=== PATIENT | male | born 1980 | race Caucasian/White ===

== ENCOUNTER 2021-07-24 08:00 | Outpatient (CLI) | payer SELFPAY | END 2021-07-24 23:59 | LOC: LAB.N 08:00 | PROVIDERS: ATTEND Family Medicine | DX: Z20.822 Contact with and (suspected) exposure to COVID-19 (principal) ==

== ENCOUNTER 2021-11-20 09:18 | Emergency (ER) | payer OTHER ==
[2021-11-20 09:29] VITALS: BP 165/93
[2021-11-20] MEDS ORDERED: CHERRY SYRUP 10 ML UDC PO ONE (10:09)
[2021-11-20] MEDS ORDERED: DEXAMETHASONE 10 MG/ML VIAL PO STA (10:09)
--- NOTE | 2021-11-20 10:22 | ED Physician Documentation ---
History of Present Illness - Stated complaint Stated Complaint: BLURRED VISION - Chief complaint Chief Complaint: Cardiac - History obtained from History obtained from: Patient - History of Present Illness Timing: Today - Additonal information Additional information: 41-year-old male has a history of COVID in July of this year he has been reexposed to a son that has infection and he has now developed cough congestion and blurring of his vision. This morning he is concerned mostly about the blurring to his vision. He states this is never been this way for him previously he is looking across the room and is having trouble reading the numbers are blurry. He can still see them. He has not had problems with his eyesight previously. Review of Systems Constitutional: denies: Fever Eyes: reports: Other (Blurring of the vision). denies: Loss of vision, Decreased vision Ears: denies: Ear pain Nose: reports: Rhinorrhea / runny nose, Congestion Throat: reports: Sore throat Respiratory: reports: Dyspnea, Cough GI: denies: Vomiting Skin: denies: Rash PD PAST MEDICAL HISTORY - Allergies Allergies/Adverse Reactions: Allergies Allergy/AdvReac Type Severity Reaction Status Date / Time Penicillins Allergy Unknown Verified 11/20/21 09:29 PD ED PE NORMAL - Vitals Vital signs reviewed: Yes - General General: Alert and oriented X 3, No acute distress, Well developed/nourished - HEENT HEENT: Atraumatic, PERRL, EOMI, Ears normal, Moist mucous membranes, Pharynx benign, Dentition benign - Neck Neck: Supple, no meningeal sign, No bony TTP - Cardiac Cardiac: RRR, No murmur - Respiratory Respiratory: No respiratory distress, Clear bilaterally - Abdomen Abdomen: Soft, Non tender - Back Back: No CVA TTP, No spinal TTP - Derm Derm: Normal color, Warm and dry, No rash - Extremities Extremities: No deformity, No edema - Neuro Neuro: Alert and oriented X 3, 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, No motor deficit, No sensory deficit, Normal speech Eye Opening: Spontaneous Motor: Obeys Commands Verbal: Oriented GCS Score: 15 - Psych Psych: Normal mood, Normal affect Results - Vitals Vitals: Vital Signs - 24 hr 11/20/21 09:23 Temperature 36.1 C L Heart Rate 80 Respiratory 18 Rate Blood Pressure 165/93 H O2 Saturation 100 Oxygen O2 Source Room air - EKG (time done) 0928 Rate: Rate (enter#) (70) Rhythm: NSR Ischemia: Normal ST segments Compare to prior EKG: Old EKG unavailable Computer interpretation: Agree with computer - Labs Labs: Laboratory Tests 11/20/21 11/20/21 10:18 10:18 WBC 6.7 RBC 4.97 Hgb 15.4 Hct 43.3 MCV 87.1 MCH 31.0 MCHC 35.6 RDW 12.2 Plt Count 246 MPV 8.8 Neut # (Auto) 3.7 Lymph # (Auto) 2.1 Whiteside # (Auto) 0.6 Eos # (Auto) 0.2 Baso # (Auto) 0.0 Absolute Nucleated RBC 0.00 Nucleated RBC % 0.0 Sodium 139 Potassium 4.0 Chloride 103 Carbon Dioxide 27 Anion Gap 9.0 BUN 7 Creatinine 0.9 Estimated GFR (MDRD) 93 Glucose 101 H Calcium 9.5 Total Bilirubin 1.0 AST 27 ALT 27 Alkaline Phosphatase 154 H Total Protein 7.6 Albumin 4.4 Globulin 3.2 Albumin/Globulin Ratio 1.4 Lipase 93 H - Rads (name of study) CT head without Radiology: Prelim report reviewed (Impression: No acute intracranial finding.), EMP read indepedently, See rad report PD MEDICAL DECISION MAKING - ED course Complexity details: reviewed results, re-evaluated patient, considered differential, d/w patient, d/w family ED course: 41-year-old male with some blurring of vision and and a potential exposure to COVID has a COVID test performed we did check the patient for pinch potential of sphenoid sinusitis which did not appear evident on CT scanning of the head. I have referred the patient to see the accounts officer and have asked him to do this after his COVID test is negative. Departure - Departure Disposition: Home, Self Care Clinical Impression: Viral URI with cough, Blurred vision, bilateral Condition: Stable Instructions: ED Blurred Vision, COVID-19 [facility] Department of Health, Flu and Cold: Nutrition, Prevention and Treatment Tips Follow-Up: [facility] [place] [Provider Group] Santi Andrade MD [Provider Admit Priv/Credential] - Comments: Kelvin, today on physical examination there is no obvious evidence of pneumonia or serious illness. There is a likelihood that you have contracted COVID again and your course should be shortened and less troublesome than your original course. The blurring of your vision may be related to this. I have recommended a visit to Dr. Andrade the eye doctor in [place]. Call to make an appointment for this week. Your covid test is pending and you can get the results through the patient portal. Discharge Date/Time: 11/20/21 11:37
[2021-11-20 10:23] LABS: BASOPHILS % (AUTO) 0.4 %; EOSINOPHILS # (AUTO) 0.2 10^3/uL (0.0-0.7); EOSINOPHILS % (AUTO) 2.8 %; HCT - HEMATOCRIT 43.3 % (42.0-52.0); HGB - HEMOGLOBIN 15.4 g/dL (14.0-18.0); LYMPHOCYTES # (AUTO) 2.1 10^3/uL (1.5-3.5); LYMPHOCYTES % (AUTO) 31.9 %; MEAN CORPUSCULAR HGB CONC 35.6 g/dL (32.0-36.0); MEAN CORPUSCULAR VOLUME 87.1 fL (80.0-94.0); MEAN PLATELET VOLUME 8.8 fL (7.4-11.4); MONOCYTES # (AUTO) 0.6 10^3/uL (0.0-1.0); MONOCYTES % (AUTO) 9.3 %; NEUTROPHILS # (AUTO) 3.7 10^3/uL (1.5-6.6); NEUTROPHILS % (AUTO) 55.3 %; PLT - PLATELET COUNT 246 10^3/uL (130-450); RED BLOOD COUNT 4.97 10^6/uL (4.70-6.10); RED CELL DISTRIBUTION WIDTH 12.2 % (12.0-15.0); WHITE BLOOD COUNT 6.7 x10^3/uL (4.8-10.8)
[2021-11-20 10:36] LABS: ALBUMIN 4.4 g/dL (3.2-5.5); ALBUMIN/GLOBULIN RATIO 1.4 (1.0-2.2); CALCIUM 9.5 mg/dL (8.5-10.3); CREATININE 0.9 mg/dL (0.6-1.2); TOTAL PROTEIN 7.6 g/dL (6.7-8.2)
--- NOTE | 2021-11-20 10:45 | CT Report ---
PROCEDURE: HEAD WO INDICATIONS: Blurred vision TECHNIQUE: Noncontrast 4.5 mm thick angled axial sections acquired from the foramen magnum to the vertex. For r adiation dose reduction, the following was used: automated exposure control, adjustment of mA and/or kV according to patient size. COMPARISON: None. FINDINGS: Image quality: Excellent. CSF spaces: Basal cisterns are patent. No extra-axial fluid collections. Ventricles are normal in size and shape. Brain: No midline shift. No intracranial masses or hemorrhage. Zuleta-white matter interface is norm al. Skull and face: Calvarium and visualized facial bones are intact, without suspicious lesions. Sinuses: Visualized sinuses and mastoids are clear. IMPRESSION: No acute intracranial finding. Reviewed by: Danielito Rain MD on 11/20/2021 10:43 AM [facility] Approved by: Danielito Rain MD on 11/20/2021 10:43 AM [facility] Station ID: [id number]
== END 2021-11-20 11:37 | disposition home or self-care (01) ==
LOC: ED 09:18
DX: J06.9 Acute upper respiratory infection, unspecified (principal); H53.8 Other visual disturbances; Z20.822 Contact with and (suspected) exposure to COVID-19
CPT/HCPCS: 36415; 70450; 80053; 83690; 85025; 87635; 93005; 99283; 99284; A9270

== ENCOUNTER 2022-08-01 10:51 | Outpatient (CLI) | payer OTHER ==
--- NOTE | 2022-08-01 14:23 | XRAY Report ---
PROCEDURE: Elbow 2 View RT INDICATIONS: ELBOW PAIN RIGHT TECHNIQUE: 2 views of the elbow were acquired. COMPARISON: None FINDINGS: Bones: Slight irregularity is noted in the proximal radial head cortex. No suspicious bony lesions. Soft tissues: Minimal elbow joint effusion. No suspicious soft tissue calcifications. IMPRESSION: Slight proximal radial cortex irregularity. Nondisplaced fracture cannot be excluded. Follow-up imagi ng in 7-10 days is recommended for further evaluation. Reviewed by: Christina Duke MD on 08/01/2022 2:22 PM PDT Approved by: Christina Duke MD on 08/01/2022 2:22 PM PDT Station ID: [id number]
== END 2022-08-01 10:52 | disposition home or self-care (01) ==
LOC: DI.N 10:51
PROVIDERS: ATTEND Nurse Practitioner Family
DX: M25.521 Pain in right elbow (principal)

== ENCOUNTER 2022-08-14 16:46 | Outpatient (CLI) | payer OTHER ==
--- NOTE | 2022-08-15 10:36 | XRAY Report ---
PROCEDURE: Elbow 3 View RT INDICATIONS: R ELBOW PX TECHNIQUE: 3 views of the elbow were acquired. COMPARISON: 08/01/2022 FINDINGS: Bones: Similar appearance of mildly angulated radial head/neck. No displaced fracture or dislocation. Soft tissues: No significant joint effusion. IMPRESSION: Similar mildly angulated appearance of the radial head/neck. No displaced injury is identified. No curtis int effusion. Correlate with point tenderness. If there is high concern for further derangement, cons ider MRI evaluation. Reviewed by: Rudy Saleem MD on 08/15/2022 10:35 AM PDT Approved by: Rudy Saleem MD on 08/15/2022 10:35 AM PDT Station ID: [id number]
== END 2022-08-14 16:47 | disposition home or self-care (01) ==
LOC: DI.N 16:46
PROVIDERS: ATTEND Nurse Practitioner Family
DX: M25.521 Pain in right elbow (principal); R93.7 Abnormal findings on diagnostic imaging of other parts of musculoskeletal system

== ENCOUNTER 2022-09-06 09:10 | Outpatient (CLI) | payer OTHER ==
[2022-09-06 12:58] LABS: BASOPHILS % (AUTO) 0.6 %; EOSINOPHILS # (AUTO) 0.2 10^3/uL (0.0-0.7); EOSINOPHILS % (AUTO) 3.2 %; HCT - HEMATOCRIT 45.1 % (42.0-52.0); HGB - HEMOGLOBIN 15.2 g/dL (14.0-18.0); LYMPHOCYTES # (AUTO) 2.2 10^3/uL (1.5-3.5); LYMPHOCYTES % (AUTO) 32.4 %; MEAN CORPUSCULAR HEMOGLOBIN 30.1 pg (27.0-31.0); MEAN CORPUSCULAR HGB CONC 33.7 g/dL (32.0-36.0); MEAN CORPUSCULAR VOLUME 89.3 fL (80.0-94.0); MEAN PLATELET VOLUME 9.5 fL (7.4-11.4); MONOCYTES # (AUTO) 0.7 10^3/uL (0.0-1.0); MONOCYTES % (AUTO) 9.7 %; NEUTROPHILS # (AUTO) 3.7 10^3/uL (1.5-6.6); NEUTROPHILS % (AUTO) 53.8 %; PLT - PLATELET COUNT 277 10^3/uL (130-450); RED BLOOD COUNT 5.05 10^6/uL (4.70-6.10); RED CELL DISTRIBUTION WIDTH 11.9 % (12.0-15.0); WHITE BLOOD COUNT 6.8 x10^3/uL (4.8-10.8)
[2022-09-06 13:01] LABS: ALBUMIN 4.8 g/dL (3.2-5.5); ALBUMIN/GLOBULIN RATIO 1.5 (1.0-2.2); ALKALINE PHOSPHATASE 141 IU/L (42-121); ALT ALANINE AMINOTRANSFERASE 34 IU/L (10-60); AST ASPARTATE AMINOTRANSFERASE 28 IU/L (10-42); BILIRUBIN,TOTAL 1.2 mg/dL (0.2-1.0); BUN - BLOOD UREA NITROGEN 16 mg/dL (6-20); CALCIUM 9.9 mg/dL (8.5-10.3); CARBON DIOXIDE - CO2 29 mmol/L (21-32); CHLORIDE 101 mmol/L (101-111); CHOL/HDL RATIO 3.7 (<5.0); CHOLESTEROL 209 mg/dL; GFR - MDRD 82 (>89); GLUCOSE 110 mg/dL (70-100); HDL CHOLESTEROL 57 mg/dL; LDL CHOLESTEROL,CALCULATED 102 mg/dL; LDL/HDL RATIO 1.8 (<3.6); POTASSIUM 4.2 mmol/L (3.5-5.0); SODIUM 136 mmol/L (135-145); TOTAL PROTEIN 7.9 g/dL (6.7-8.2); TRIGLYCERIDES 250 mg/dL; VLDL CHOLESTEROL 50 mg/dL
[2022-09-06 13:14] LABS: THYROID STIMULATING HORMONE 0.66 uIU/mL (0.34-5.60)
== END 2022-09-06 09:11 | disposition home or self-care (01) ==
LOC: LAB.N 09:10
PROVIDERS: ATTEND Nurse Practitioner Family
DX: Z00.00 Encounter for general adult medical examination without abnormal findings (principal); N46.9 Male infertility, unspecified
CPT/HCPCS: 36415; 80053; 80061; 83721; 84153; 84443; 85025

== ENCOUNTER 2024-01-12 11:27 | Outpatient (CLI) | payer OTHER ==
--- NOTE | 2024-01-12 14:18 | XRAY Report ---
PROCEDURE: Cervical Spine 2-3V INDICATIONS: CERVICAL RADICULOPATHY TECHNIQUE: 3 view(s) of the cervical spine were acquired. COMPARISON: None. FINDINGS: Bones: Mild cervical degenerative changes, with osteophytes, and lower facet arthropathy and mild dis c space height loss. Vertebral body heights are well-maintained. There is straightening of the guille l cervical lordosis without traumatic subluxation. Soft tissues: C1 on C2 alignment is maintained on odontoid view. No pathologic prevertebral soft tiss ue swelling. IMPRESSION: Mild lower cervical degenerative changes. If there is high concern for further derangement, consider MRI evaluation. No acute radiographic abnormality. Reviewed by: Rudy Saleem MD on 01/12/2024 2:17 PM PDT Approved by: Rudy Saleem MD on 01/12/2024 2:17 PM PDT Station ID: [id number]
== END 2024-01-12 11:28 | disposition home or self-care (01) ==
LOC: DI 11:27
PROVIDERS: ATTEND Registered Nurse
DX: M47.812 Spondylosis without myelopathy or radiculopathy, cervical region (principal)